=== PATIENT | male | born 2000 | race Caucasian/White ===

== ENCOUNTER 2023-01-25 18:36 | Emergency (ER) | payer OTHER ==
[~2023-01-25] VITALS: Ht 165.1 cm; Wt 65.8 kg
[2023-01-25 19:10] VITALS: BP 124/77
[2023-01-25] MEDS ORDERED: ERYT.5TO LEFTEYE ×2 (20:43→20:46)
[2023-01-25] MEDS ORDERED: OCUFLOX510 LEFTEYE ×2 (20:43→20:46)
== END 2023-01-25 21:30 | disposition home or self-care (01) ==
LOC: ER 18:36
DX: T15.02XA Foreign body in cornea, left eye, initial encounter (principal)
CPT/HCPCS: 65222; 96372-59; 99283-25; A9270; J1885